=== PATIENT | male | born 2005 | race Caucasian/White ===

== ENCOUNTER 2023-09-14 13:38 | Outpatient (CLI) | payer OTHER, SELFPAY ==
--- NOTE | ~2023-09-14 | MR_ITS ---
EXAMINATION: MR hip LT w con DATE: 09/14/2023 16:02 INDICATION: Left hip pain TECHNIQUE: Magnetic resonance (MR) arthrogram of the left hip was performed following intra-articular gadolinium contrast injection and without intravenous contrast. Details of the hip joint injection h ave been dictated separately. Sequences included small field of view of the left hip with axial and s agittal T1-weighted FS SE and T2-weighted FS FSE and coronal T1-weighted SE and T2-weighted FS FSE. Additional T1-weighted FGRE images in a radial pattern oriented orthogonal to the acetabular rim were obtained for evaluation of the labrum. COMPARISON: None. FINDINGS: Bones/labrum/cartilage: Alignment is normal. No fracture, avascular necrosis or pathologic marrow replacing process. There i s suggestion of mild decreased anterosuperior femoral head/neck offset on the left. Tiny low signal i ntensity contrast filling defect consistent with a gas bubble along the margin of the anterosuperior left acetabular labrum. Small very shallow cleft at the chondral labral junction at the 12:30-1:00 po sition of the anterosuperior labrum best appreciated on the radial series 13, images 5 & 6 and small [id number] coronal series 7 and 13061, images 8 & 9. Labrum is otherwise normal. Articular cartila ge is normal. Fluid: Physiologic amount fluid in the right hip joint. No bursitis or other abnormal fluid collections. Soft tissues: Normal and symmetric muscle bulk and signal in the pelvis and visualized proximal thighs. The bilater al iliopsoas, gluteal and proximal hamstring tendons are normal. Limited evaluation of visceral organ s of the pelvis is unremarkable. No pathologically enlarged pelvic/inguinal lymphadenopathy. IMPRESSION: 1. Very small and shallow tear at the 12:30-1:00 position of the anterosuperior chondral labral junct ion. 2. Suggestion of decreased anterosuperior left femoral head/neck offset which could predispose toward s cam-type femoral acetabular impingement. Consider dedicated radiographs with done view and frog-leg lateral views of the left hip and clinical correlation for signs/symptoms of impingement. 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 Very small and shallow tear at the 12:30-1:00 position of the anterosuperior chondral labral junction. 2. Suggestion of decreased anterosuperior left femoral head/neck offset which c ould predispose towards cam-type femoral acetabular impingement. Consider dedic ated radiographs with done view and frog-leg lateral views of the left hip and clinical correlation for signs/symptoms of impingement.
--- NOTE | ~2023-09-14 | XR_ITS ---
EXAMINATION: XR fl inj hip LT for MR/CT DATE: 09/14/2023 14:55 INDICATION: Left hip pain post sports injury TECHNIQUE: A time-out was performed to verify the patient's name, date of , and procedure to b e performed. The procedure including the risks, benefits, and alternatives was discussed with the pat ient. Risks discussed included bleeding and infection. The patient understood the risks and agreed to proceed. The skin overlying the left hip joint was prepped and draped in usual sterile fashion. An esthetic was administered with 1% lidocaine subcutaneously. A 22 G needle was advanced under fluoros copic guidance into the joint. Injection of 1 mL of Omnipaque 240 confirmed intra-articular position of the needle. Subsequently, injectate consisting of 12 mL of 2:1:1 mixture of sterile saline:Omnip aque 240:1% lidocaine mixed 200:1 with 529 mg/mL Multihance gadolinium contrast was instilled. Inter articular administration was confirmed with intermittent fluoroscopy. The needle was removed and the entry site was cleaned and dressed. There were no immediate complications. Fluoroscopy exposure time was 0.1 minutes. The total number of images was 6. Total DAP was 0.6 Gycm^2 FINDINGS: Real-time fluoroscopy demonstrates the needle in the left hip joint. Patient's pain prior t o procedure:6/10. Patient's pain following the procedure: 4/10. IMPRESSION: 1. Successful left hip joint injection of dilute gadolinium contrast mixture for subsequent MRI arthr ogram which will be dictated separately. Reviewed, dictated and finalized at location A. 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 Successful left hip joint injection of dilute gadolinium contrast mixture fo r subsequent MRI arthrogram which will be dictated separately.
== END 2023-09-14 13:39 | disposition home or self-care (01) ==
PROVIDERS: Visit Provider Orthopaedic Surgery
DX: M25.552 Pain in left hip (principal)
CPT/HCPCS: 20610; 73722; 77002; A9577; Q9966